=== PATIENT | male | born 1930 | race Caucasian/White ===

== ENCOUNTER 2016-08-12 18:14 | Inpatient (IN) | payer MEDICARE, BC ==
--- NOTE | ~2016-08-12 | HP ---
Unit #: [id number] #: [id number] Patient: STEVEN RESTREPO [id number] [address] [address] [id number] I MR#: [id number] NAME: STEVEN RESTREPO ROOM: 308 Age: 85 Sex: M Admission Date: 08/12/2016 : 1930 Attending Physician: Maria M Bustamante M.D. Referring Physician: Timo Caro Jr., M.D. Primary Care Physician: Timo Caro Jr., M.D. HISTORY AND PHYSICAL CHIEF COMPLAINT Short of breath. HISTORY OF PRESENT ILLNESS The patient is an 85-year-old male with past medical history of multiple medical problems including COPD, chronic respiratory failure, chronic kidney disease, abdominal aortic aneurysm, atrial fibrillation, CHF, ureteral stricture, hypertension, hyperlipidemia, coronary artery disease, who presented to the emergency department for evaluation of the above. The patient states that he was in his usual state of health until today when he developed shaking chills, shortness of breath and nonproductive cough. He was brought to the emergency department for further evaluation. Upon arrival in the emergency department, the patient's temperature was 103, pulse 90, respirations 28, blood pressure 148/71. He is currently on BiPAP. Chest x-ray shows possible infiltrate. Lactic acid is 2.4. Rapid flu screen is negative. He was given Rocephin and azithromycin in the emergency department. He is being admitted to [facility] for evaluation and further treatment. PAST MEDICAL HISTORY 1. Admission to [facility] May 31 through the 2013 for a left lower lobe pneumonia and urinary tract infection. 2. COPD. 3. Chronic respiratory failure, on 3 L of oxygen per nasal cannula. 4. Chronic kidney disease. 5. History of ureteral stricture, status post nephrostomy tube placement, followed by Dr. Berry. The nephrostomy tube was apparently changed two weeks ago. 6. Hypertension. 7. Hyperlipidemia. 8. Coronary artery disease, status post stent placement. 9. Hypertension. 10. Hyperlipidemia. 11. Abdominal aortic aneurysm. PAST SURGICAL HISTORY 1. Cardiac stent placement. 2. Aortic aneurysm repair. 3. Left nephrostomy tube. 4. ORIF left hip fracture. 5. Multiple esophageal dilatations. Unit #: [id number] #: [id number] Patient: STEVEN RESTREPO SOCIAL HISTORY The patient lives with his . There is no tobacco or alcohol use. He walks with a walker. His code status is a DO NOT RESUSCITATE. FAMILY HISTORY Notable for coronary artery disease and hypertension. ALLERGIES Librium, metoclopramide, codeine. MEDICATIONS Home medications include: 1. Aspirin. 2. Atorvastatin. 3. Lasix. 4. Norvasc. 5. Omeprazole. 6. Propranolol. 7. Montelukast. 8. Spiriva. 9. Temazepam. Home medications will need to be reviewed and verified. REVIEW OF SYSTEMS A complete review of systems is negative except as indicated in the HPI. The patient states that he does choke on his food intermittently if he eats too fast. He denies any vomiting or diarrhea. He denies any chest pain. DIAGNOSTIC STUDIES LABORATORY: Arterial blood gas shows pH of 7.42, pCO2 of 38.8, pO2 of 77.9 on BiPAP of 12/6 with an FIO2 of 60%. Rapid flu screen is negative. INR is 1. Troponin is less than 0.05. Complete blood count notable for white blood cell count of 27.5, hemoglobin and hematocrit 11 and 36.1 respectively. MCV is 80.2, RDW 17, BNP is 647, lactic acid is 2.4. Comprehensive metabolic panel notable for glucose of 238. BUN and creatinine 37 and 2.5 respectively. Alkaline phosphatase 137. PHYSICAL EXAMINATION VITAL SIGNS: Temperature is 103, pulse 90, respirations 28, blood pressure 148/71. GENERAL: The patient is a male who is awake and alert, currently on BiPAP. HEENT: The head is atraumatic. Mucous membranes are moist. NECK: Supple. Trachea is midline. CARDIOVASCULAR: Regular rate and rhythm. LUNGS: Demonstrate a few scattered rhonchi. Breathing is not labored. ABDOMEN: Soft, nontender with bowel sounds present in all four quadrants. EXTREMITIES: Trace edema. NEUROLOGIC: The patient is awake and alert. He is oriented x3. He Unit #: [id number] #: [id number] Patient: STEVEN RESTREPO follows commands. PSYCH: Mood and affect are normal. The patient is cooperative. SKIN: Skin of examined areas is warm and dry. ASSESSMENT The patient is an 85-year-old male with: 1. Acute on chronic respiratory failure. 2. Pneumonia: The patient received Rocephin and Zithromax in the emergency department. 3. Sepsis with a lactic acid of 2.4: Pneumonia could certainly be the source. His urinalysis is pending. The patient does have a nephrostomy tube that was changed two weeks ago, per the patient. Urine culture on May 30, 2013, grew 50,000 to 60,000 E. coli and 20,000 to 30,000 Staph aureus that was resistance to ampicillin and Levaquin. A culture from August 04, 2012, grew greater than 100,000 Enterococcus species and Enterobacter cloacae. Cultures have also grown Pseudomonas (May 02, 2012) that was pansensitive. 4. Chronic obstructive pulmonary disease. 5. Acute on chronic kidney disease: The patient's creatinine was 2 on May 31, 2013. It is 2.5 today. 6. History of ureteral stricture, status post nephrostomy tube placement. 7. Atrial fibrillation, not on chronic anticoagulation. 8. Congestive heart failure: The patient had an echocardiogram May 02, 2012, that showed moderate concentric left ventricular hypertrophy with ejection fraction of 50% to 55%, mild tricuspid regurgitation, mild aortic root dilatation. 9. Coronary artery disease. 10. Hypertension. 11. Hyperlipidemia. 12. Abdominal aortic aneurysm. 13. Hyperglycemia. PLAN 1. Admit to ICU. 2. NPO except medications. 3. Consult Dr. Moscoso regarding acute on chronic respiratory failure. He has already seen the patient and written orders. 4. Blood cultures x2. 5. Sputum culture and sensitivity. 6. Sepsis protocol with repeat lactic acid. 7. Cefepime and vancomycin as per Dr. Moscoso's orders. 8. Normal saline at 75 mL/hour. 9. Serial cardiac enzymes. 10. Consult Dr. Schmidt regarding possible urinary tract infection and nephrostomy tube. 11. CT of the abdomen and pelvis without contrast for further evaluation of nephrostomy tube and kidneys as possible source of infection. 12. Strict I's and O's. 13. Consult Dr. Metz regarding acute on chronic kidney disease. 14. Repeat labs in the morning. 15. SCDs for DVT prophylaxis. 16. Hemoglobin A1c. 17. Low dose sliding scale insulin with Accu-Cheks. 18. Regarding code status, the patient is a DO NOT RESUSCITATE. Thirty-six minutes critical care time spent in the care of this patient (6:10 to 6:46 p.m.). Unit #: [id number] #: [id number] Patient: STEVEN RESTREPO Dictated by Maria M Bustamante M.D. AW/df TD: 08/13/2016 06:10 JOB #: [id number] HISTORY AND PHYSICAL X Maria M Bustamante MD X HISTORY AND PHYSICAL
--- NOTE | ~2016-08-12 | CR72 ---
[facility] A Service of [facility] & [facility] RADIOLOGY TEXT RESULTS PATIENT: STEVEN RESTREPO LOCATION: [facility] - : 29 UNIT #: [id number] AGE: [address]: Phillip Bauer MD SEX: M ORDER DR: [id number] [facility] [address] [facility]. [place], [place] [address] [id number] I MR#: [id number] Acc #: [id number] NAME: STEVEN RESTREPO. : 1930 SEX: M STUDY DATE/TIME: 08/14/2016 3:53 UNIT: [address] ROOM: [facility] STUDY DESCRIPTION: CR Chest Single View Portable Attending Physician: Phillip Bauer M.D. Referring Physician: Timo Caro Jr., M.D. Ordering Physician: Phillip Bauer M.D. Primary Care Physician: Timo Caro Jr., M.D. MEDICAL IMAGING REPORT This report is preliminary unless electronic signature is present EXAM AP portable chest 08/14/2016 HISTORY Respiratory failure. Pneumonia. Follow up cardiopulmonary status. TECHNIQUE AP portable chest x-ray. FINDINGS The exam shows persistent dense airspace consolidation in both lower lobes, unchanged since yesterday and well demonstrated on abdomen CT 08/12/2016. Upper lungs remain clear. Probable COPD. Cardiomegaly is stable. Pulmonary vascularity is normal. IMPRESSION Stable portable chest radiograph, unchanged since yesterday. Persistent dense airspace consolidation in both lower lobes. Dictated by... Kiel Teran M.D. THIS IS AN ELECTRONICALLY VERIFIED REPORT Kiel Teran M.D. at 08/15/2016 5:30 AM RGW/liz TD: 08/15/2016 02:47 JOB #: [id number] MEDICAL IMAGING REPORT COPY
--- NOTE | ~2016-08-12 | EKG ---
PATIENT: STEVEN RESTREPO UNIT #: [id number] Ventricular Rate: 77 BPM Atrial Rate: 77 BPM P-R Interval: 164 ms QRS Duration: 108 ms Q-T Interval: 410 ms QTC Calculation(Bezet): 463 ms P [place]: 92 degrees Calculated R [place]: -28 degrees Calculated T [place]: 127 degrees Diagnosis Line: Sinus rhythm with Premature atrial complexes Diagnosis Line: ST and T wave abnormality, consider lateral ischemia Diagnosis Line: Prolonged QT Diagnosis Line: Abnormal ECG Diagnosis Line: When compared with ECG of 14-AUG-2016 06:55, Diagnosis Line: Sinus rhythm has replaced Atrial fibrillation Diagnosis Line: Nonspecific T wave abnormality now evident in Diagnosis Line: Anterior leads Diagnosis Line: Confirmed by GUILHERME CLEARY MD ([id number]) on Diagnosis Line: 08/15/2016 8:04:46 PM INTERPRETING MD: MAKENNA
--- NOTE | ~2016-08-12 | CO ---
Unit #: [id number] #: [id number] Patient: STEVEN RESTREPO [id number] [address] [place], [place] [address] [id number] I MR#: [id number] NAME: STEVEN RESTREPO ROOM: 308 Age: 85 Sex: M Admission Date: 08/12/2016 : 1930 Attending Physician: Phillip Bauer M.D. Primary Care Physician: Timo Caro Jr., M.D. Consultation Date: 08/13/2016 CONSULTATION REPORT HISTORY OF PRESENT ILLNESS This is an 85-year-old white male with history of multiple medical issues including he has had a previous IL with previous stents, details are unavailable. He got a chronic respiratory failure, wears continuous home oxygen; severe COPD. He got chronic urethral stricture that requires a nephrostomy tube. He follows Dr. Berry. He has had known abdominal aortic aneurysm that has enlarged since 2013, it is now 7.7 x 9.5 cm; in 2013, it was 6.6 cm. He got an ejection fraction of 50% to 55% on his last echo, but that was in 2011. He is very sedentary at home and [facility] follows the patient, he has been dealing with increased chest congestion and cough, and increased weakness over two weeks. He had been treating with some steroids and change in his nebulizer treatments. He was brought into the hospital by his family with as mentioned and 2-week history of increased shortness of breath, increased cough, chills and fever. He denies any chest pain, except he has some lower epigastric discomfort, especially when he is coughing. He denies any increased lower extremity edema. No pain in his neck, bilateral jaws, shoulders, arms, or elbow. In the emergency room, the patient's temperature was 103, his heart rate was 90, respirations 28, blood pressure was 148/71. He was started on BiPAP. His ABGs showed pH is 7.42, pCO2 of 38.8, pO2 of 77.9 that was on BiPAP of 12/6 with FiO2 of 60%. The patient's chest x-ray showed bilateral infiltrates. His lactic acid was 2.4. Rapid flu screen was negative. He was started on IV antibiotics after cultures obtained. Nephrology and Urology has been consulted. He does have chronic kidney disease. His BUN was 37 with creatinine 2.5, eGFR is 26.2. The patient's WBCs are 27.5, his hemoglobin is 11.0, hematocrit 36.1, platelets are 191. Today, his hemoglobin is down to 8.8 and his platelets are 121. The patient had a BNP, which was 647. His initial cardiac enzymes; his troponin 0.06. EKG shows normal sinus rhythm. He has frequent premature ventricular complexes and occasional premature ventricular complex. Cardiology was consulted to assist with evaluation and management. PAST MEDICAL HISTORY 1. Coronary artery disease, previous PCI and stents. Reports that he has had four heart attacks and has several stents, may be questionable four stents. Details are unavailable. He had last cath nine years ago at [facility]. 2. History of paroxysmal atrial fibrillation noted here at [facility] and at one time, had been on Coumadin. 3. Hypertension. 4. Hyperlipidemia. 5. Chronic respiratory failure, severe COPD. He wears continuous oxygen Unit #: [id number] #: [id number] Patient: STEVEN RESTREPO at 3 L. 6. History of multiple esophageal dilatations, most recently, a couple of months ago. 7. History of anemia. 8. Chronic kidney disease with history of urethral stricture, status post nephrostomy tube and was changed two weeks ago. 9. History of abdominal aortic aneurysm. Today, his aneurysm is 7.7 x 9.5 cm and well over 10 cm in length; in 2013, it was 6.6 cm. 10. In 2011, 2D echo; LVEF of 50% to 55% with left ventricle severely dilated, moderate left ventricular hypertrophy, mild tricuspid regurgitation and mild aortic root dilatation. 11. Reformed smoker. 12. [facility] follows the patient at home. PAST SURGICAL HISTORY 1. PCI, angioplasty and stents, questionable two, may be as many as four stents. Details are unavailable. 2. Nephrostomy tube, left kidney that is changed two weeks ago. Follows Dr. Berry. 3. Abdominal aortic aneurysm and left lower extremity aneurysm repair, years ago. 4. Left hip replacement. HOME MEDICATIONS Amlodipine 10 mg p.o. daily, aspirin 81 mg p.o. daily, omeprazole 40 mg p.o. daily, simvastatin 20 mg p.o. daily, Spiriva 1 inhalation daily, temazepam 30 mg p.o. at bedtime, propranolol 60 mg p.o. b.i.d., Lasix 20 mg p.o. daily, montelukast 10 mg p.o. daily. ALLERGIES 1. Librium. 2. Reglan. 3. Codeine. SOCIAL HISTORY The patient lives with his spouse. He is very sedentary due to his multiple medical problems. He only walks up to the bathroom and from the couch to the chair with a walker. No alcohol or illicit drug abuse at this time. He quit smoking 40 years ago, but smoked probably for 40 years. FAMILY HISTORY He states that his father at a young age. His mother lived until she was older. No known acute coronary artery disease in his siblings. REVIEW OF SYSTEMS See details in HPI. PHYSICAL EXAMINATION GENERAL: Mr. Restrepo is an 85-year-old white male. He is in no acute respiratory distress. He is awake, alert. Answers some questions appropriately. VITAL SIGNS: Blood pressure is 129/66, heart rate 76, respirations 18, temperature is 99.5, O2 saturations 99% on room air. His earlier T-max was 100.2. NECK: Trachea midline. No thyromegaly or lymphadenopathy. Mild jugular venous distention. HEART: S1, S2. Regular rate and rhythm, irregular at times. LUNGS: Very diminished. Some rales in the bases. Some scattered Unit #: [id number] #: [id number] Patient: STEVEN RESTREPO. ABDOMEN: Obese, soft. Slightly tender with palpating. EXTREMITIES: Pedal pulses are palpable. 1+ pedal edema. DIAGNOSTIC STUDIES LABORATORY RESULTS: ABGs; pH of 7.452, pCO2 of 32.2, pO2 of 113.0, O2 sats 98.6 that is on FiO2 of 58%. Glucose is 138, BUN is 34, creatinine 2.2, eGFR is 30.3, sodium 137, potassium 4.2, chloride 106, CO2 of 23, calcium is 8.6, phosphorus is 2.6, magnesium is 2.0, total protein 6.2, albumin is 2.8, AST 15, ALT 10, alkaline phosphatase is 102. BNP 647. Lactic acid on admission was 2.4; later, it is 1.2. WBCs are 22.4; hemoglobin 8.8, down from 11.0; hematocrit 29.0; and platelets are 121. Influenza A and B are negative. Urinalysis; 3+ leukocyte esterase, 2+ protein, 100 glucose, 0.2 urobilinogen, 2+ blood, 10 to 25 rbc's, 200 to 300 wbc's, and 4+ bacteria. Blood cultures are pending. Initial cardiac enzymes; CK-MB is 1.0, troponin less than 0.05. CK-MB is less than 1.0, troponin less than 0.05. Latest troponin is 0.06. IMAGING STUDIES: Chest x-ray shows low volumes of bibasilar atelectasis. CT of the abdomen and pelvis without contrast shows extensive bibasilar opacities, most likely represents chronic pneumonia, superimposed on diffuse lung disease and progressive enlargement of a large infrarenal abdominal aortic aneurysm, measuring 7.7 x 9.5 cm in dimensions as well as 10.0 cm in length, compared to 2014 scan that measures 6.6 cm; marked atrophy of the left kidney and a right inguinal hernia without any incarceration or obstruction. CARDIOVASCULAR STUDIES: EKG shows normal sinus rhythm with frequent premature atrial contractions, ventricular rate 89 beats per minute, some nonspecific ST-T wave abnormalities in the lateral leads. IMPRESSION 1. Acute on chronic respiratory failure. 2. Pneumonia. 3. Exacerbation of chronic obstructive pulmonary disease. 4. Sepsis. 5. Acute diastolic congestive heart failure, left ventricular ejection fraction of 50% to 55% that was on echo in 2011 and elevated BNP of 647. 6. History of coronary artery disease, previous percutaneous coronary intervention and stents years ago. 7. Acute on chronic kidney disease. 8. Left nephrostomy tube. 9. Large abdominal aortic aneurysm. 10. Anemia. 11. History of hypertension and hyperlipidemia. 12. History of paroxysmal atrial fibrillation. 13. History of esophageal dilatations. PLAN 1. Cardiology consult to assist with evaluation and management to evaluate for fluid overload. On exam, the patient does appear to be in some congestive heart failure. We will give a dose of IV Bumex and monitor response. We will stop his IV fluids for now. 2. Obtain a 2D echo to evaluate LV function and valves. 3. After examination and interview, Dr. Fitzpatrick recommends the patient be Unit #: [id number] #: [id number] Patient: STEVEN RESTREPO on a low-dose heparin drip for anticoagulation, but we will check with Vascular Surgery first. They have been consulted to evaluate the abdominal aortic aneurysm. 4. The patient has a history of previous stents and he has occasional discomfort in his lower chest wall, however, it may be more pleuritic in nature, usually when he is coughing. 5. Continue to monitor cardiac enzymes and EKG. 6. Obtain fasting lipid profile and TSH and evaluate. 7. Obtain records from [facility]. 8. The patient's spouse wishes conservative medical management. Hospice has been consulted per their request. 9. The patient is on IV antibiotics. Blood and urine cultures are pending. Further recommendations pending per Dr. Fitzpatrick. Thank you very much for allowing us to assist in his care. Dictated by... Mariaelena Oconnell A.P.R.N. for Jed Vásquez/sidney TD: 08/14/2016 03:56 JOB #: [id number] CC: [facility] CONSULTATION REPORT X Mariaelena Oconnell APRN CONSULTATION REPORT
--- NOTE | ~2016-08-12 | DS ---
Unit #: [id number] #: [id number] Patient: STEVEN RESTREPO [id number] [facility]. [place], [place] [address] [id number] I MR#: [id number] NAME: STEVEN RESTREPO. ROOM: 308 Age: 85 Sex: M Admission Date: 08/12/2016 : 1930 Discharge Date: 08/17/2016 Attending Physician: Phillip Bauer M.D. Referring Physician: Timo Caro Jr., M.D. Primary Care Physician: Timo Caro Jr., M.D. DISCHARGE SUMMARY Plan for discharge home with hospice. REASON FOR ADMISSION Please see H and P for complete details. Essentially, the patient was admitted for shortness of breath. HISTORY OF PRESENT ILLNESS He is a very pleasant 85-year-old male with history of multiple medical problems including COPD on chronic home O2; chronic kidney disease; abdominal aortic aneurysm; atrial fibrillation; prior history of heart failure; recent ureteral stricture, status post stent placement as an outpatient; hypertension; hyperlipidemia; coronary artery disease, who presented with the above. It was noted he did meet sepsis criteria on admission with chest x-ray showing possible infiltrate. Lactic acid level was elevated. His temperature was elevated at 103. He was subsequently placed on telemetry floor. Appropriate consultations were placed to Pulmonary Services including Dr. [facility], who continue to follow the patient through hospital course. Blood cultures eventually were positive for 2/2 Staphylococcus coag-negative. In regard to pneumonia as well as positive blood cultures, initially consultation had been placed to Infectious Disease Services. While he was here, he was placed on IV vancomycin as well as cefepime. Final urine culture did reveal Enterococcus as well in consideration of his recent stent placement. We placed consultation to Dr. Ramos of Urology Services. Stent exchange was performed in this hospital admission and ID Services continued to follow for the same. In regard to his history of systolic heart failure, 2D echocardiogram in this hospital admission revealed ejection fraction 30% to 35%, and [facility] followed. He began having sinus pauses noted on heart monitor greatest at approximately 2.6 seconds. His beta blockers and calcium channel blockers were discontinued. A discussion was initiated for possible pacemaker placement; however, the patient does state that he did not wish to have Unit #: [id number] #: [id number] Patient: STEVEN RESTREPO any further invasive procedures. It was noted on heart monitor, he does have atrial fibrillation with slow ventricular response. In regard to his pneumonia as well as acute on chronic respiratory failure, Dr. Dyer, Pulmonary Services followed as well. He had undergone a CT of abdomen and pelvis in consideration of his prior history of abdominal aortic aneurysm on the aforementioned CT abdomen and pelvis that did reveal an increase in size of his abdominal aortic aneurysm and in consideration, we placed consultation to Vascular Services, who stated that he was not an operative candidate secondary to associated comorbid conditions. His abdominal aortic aneurysm was greater than 10 cm in length and approximately 7.7 times 9.5 cm in transverse dimensions. In consideration of associated comorbid conditions, bacteremia, sepsis, Enterococcus UTI, atrial fibrillation, sinus pauses, abdominal aortic aneurysm as well as chronic respiratory failure, chronic deconditioning, discussion was initiated with the patient as well as his and family and they were apprised of his overall poor prognosis. He stated that he wished to be a DNR and he also wished to go home with the care of hospice. Therefore, hospice services were consulted through the day today. Once appropriate home situation is established including hospice services, the patient will be transitioned home with hospice at time of discharge. At the time of discharge, his medications have been reviewed and some will be continued. Please see below. His cefepime will be determined by ID services at time of discharge to be continued. The patient is well aware of his terminal prognosis and is quite adamant that he wishes to go home and pass away in a state of peace. Please note, the patient did have elevated creatinine consistent with renal failure and Dr. Metz and associates were consulted as well. Unfortunately, his kidney function did not resume as deemed appropriate. He did have fluid and/or volume issues through his hospital course. CURRENT CLINICAL DIAGNOSES 1. Acute on chronic respiratory failure. 2. Sepsis on admission. 3. Sinus pauses/tachybrady syndrome. 4. Atrial fibrillation with slow ventricular response. 5. Coronary artery disease. 6. Systolic heart failure. 7. 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 8. Methicillin-resistant Staphylococcus aureus sputum. 9. Enterococcus urinary tract infection. 10. Staphylococcus bacteremia /. 11. Abdominal aortic aneurysm, 7.7 cm. 12. End-stage chronic obstructive pulmonary disease. 13. Bilateral lower lobe dense consolidations seen on admission. 14. Chronic deconditioning. 15. Chronic immobility syndrome. Unit #: [id number] #: [id number] Patient: STEVEN RESTREPO PROGNOSIS Poor. PLAN Home with hospice. DISCHARGE MEDICATIONS Lasix 40 mg p.o. daily, insulin high-dose sliding scale with Accu-Cheks q.a.c. and q.h.s., Protonix 40 mg p.o. daily, Restoril 30 mg p.o. q.h.s., Spiriva 1 inhalation daily, Tylenol 650 mg p.o. q.6 p.r.n., Xopenex q.6 scheduled with q.4 p.r.n., cefepime medications as per the direction of ID Services. Time spent in the coordination of this discharge, chart review, management, discussion with family, hospice, as well as the patient in detail is greater than 55 minutes. Dictated by... Phillip Bauer M.D. ALLEN/sidney TD: 08/18/2016 02:02 JOB #: [id number] DISCHARGE SUMMARY Page 1 of 1 X Phillip Bauer MD X DISCHARGE SUMMARY
--- NOTE | ~2016-08-12 | CT4 ---
[facility] A Service of [facility] & [facility] RADIOLOGY TEXT RESULTS PATIENT: STEVEN RESTREPO LOCATION: [facility] 308- : 29 UNIT #: [id number] AGE: [address]: Phillip Bauer MD SEX: M ORDER DR: [id number] [facility] [address] [facility]. [place], [place] [address] [id number] I MR#: [id number] Acc #: [id number] NAME: STEVEN RESTREPO. : 1930 SEX: M STUDY DATE/TIME: 08/12/2016 20:06 UNIT: A U ROOM: [facility] STUDY DESCRIPTION: CT Abd and Pelv Wo Cont Attending Physician: Phillip Bauer M.D. Referring Physician: Timo Caro Jr., M.D. Ordering Physician: Maria M Bustamante M.D. Primary Care Physician: Timo Caro Jr., M.D. MEDICAL IMAGING REPORT This report is preliminary unless electronic signature is present EXAM CT abdomen and pelvis without contrast HISTORY 85-year-old male reported rectal bleeding this morning, frequent UTIs. Stent placed last week. History of tumor blocking ureter and left kidney. COMPARISON CT abdomen and pelvis, 05/31/[address] exam was performed with one or more of the following radiation dose reduction techniques: automatic exposure control, adjustment of mA and/or kV according to patient size, and iterative reconstruction. FINDINGS Axial images were performed through the abdomen and pelvis without contrast. Multiplanar reconstructed images reviewed at a workstation. ABDOMEN: The examination demonstrates extensive parenchymal opacities in both lung bases with bronchiectasis and cystic change compatible with probable acute infectious pneumonia superimposed on chronic lung disease. No sizeable effusions. The liver, spleen, gallbladder unremarkable. Pancreas demonstrates generalized fatty atrophy. Adrenal glands unremarkable. The right kidney unremarkable. The left kidney demonstrates extensive cortical atrophy. There is a nephrostomy tube in place on the left but this extends towards the lateral portion of the left kidney and may be of limited function. Cyst seen in the upper pole left kidney measures up to 3.5 cm. Stomach, small bowel, colon unremarkable except for sigmoid diverticular change. There is a large infrarenal abdominal aortic aneurysm measuring over 10.0 cm in length and approximately 7.7 x 9.5 cm in greatest STS. [facility] A Service of [facility] & [facility] RADIOLOGY TEXT RESULTS PATIENT: STEVEN RESTREPO LOCATION: [facility] 308-01 : 29 UNIT #: [id number] AGE: [address]: Phillip Bauer MD SEX: M ORDER DR: transverse dimensions. This has shown interval increase in size when compared to the patient's CT scan of 2014. Aneurysmal dilatation also extends into the proximal iliacs. PELVIS: A Roberts catheter is seen within a decompressed bladder. Generalized osteopenia. Fixation instrumentation seen in the proximal left femur. There is a right inguinal hernia which contains a small loop of bowel which appears to represent small bowel but no evidence of incarceration. Moderate amount of stool noted in the rectal vault. IMPRESSION 1. Extensive bibasilar parenchymal opacities most likely represents chronic pneumonia superimposed on background diffuse lung disease. 2. Progressive enlargement of a large infrarenal abdominal aortic aneurysm now measuring 7.7 x 9.5 cm transverse dimensions and well over 10.0 cm in length. This has shown progression from 2014 where it measured about 6.6 cm in greatest dimension. 3. Marked atrophy of the left kidney with a nephrostomy catheter in place but this may be of limited value given its positioning and the limited amount of remaining left renal tissue. Right kidney unremarkable. 4. Right inguinal hernia containing a small loop of small bowel but no incarceration or obstruction. Dictated by... Shari Shane M.D. THIS IS AN ELECTRONICALLY VERIFIED REPORT Shari Shane M.D. at 08/13/2016 5:11 PM KAVIN/danielle TD: 08/13/2016 08:58 JOB #: [id number] MEDICAL IMAGING REPORT COPY
--- NOTE | ~2016-08-12 | CO ---
Unit #: [id number] #: [id number] Patient: STEVEN RESTREPO [id number] [address] [place], [place] [address] [id number] I MR#: [id number] NAME: STEVEN RESTREPO. ROOM: 308 Age: 85 Sex: M Admission Date: 08/12/2016 : 1930 Attending Physician: Phillip Bauer M.D. Primary Care Physician: Timo Caro Jr., M.D. Consultation Date: 08/15/2016 CONSULTATION REPORT REASON FOR CONSULTATION Positive blood cultures and urinary tract infection. HISTORY OF PRESENT ILLNESS This is an 85-year-old male known to our service but not seen for four years. The patient has multiple medical problems and, per the family who is at the bedside who provide most of the history, has been chronically ill for several years. The patient began feeling worse than his baseline about Tuesday evening/ morning. The patient was found to have some chills, some anorexia, some occasional cough and was thought to have maybe a fever or infection so he was brought to the emergency room. The patient was found to have a fever of 103 degrees Fahrenheit with associated leukocytosis. Workup also revealed an enlarging abdominal aortic aneurysm, bilateral lower lobe pneumonia, enterococcal urinary tract infection and two of two positive blood cultures with coagulase negative Staphylococcus. The patient has been placed on vancomycin and cefepime but ID was asked to evaluate due to positive blood cultures. The patient is noted to have a chronic left ureteral stricture managed with a chronic left percutaneous nephrostomy tube. This has changed monthly at the urologist's office for the past seven years. The patient reports that this was last changed approximately three weeks ago. The patient also has a chronic indwelling Roberts catheter which he changes monthly and this is to be change in the next one week. The patient reports that he continues to have some cough. He does have some discomfort in the abdomen but no diarrhea. He has more constipation. He also has some metal and hardware in his left hip but reports there is no change in pain in his hip and he gets around with a walker. The patient denies feeling any chest pain. He denies any headaches or upper respiratory signs and symptoms. PAST MEDICAL HISTORY Includes: 1. COPD. 2. Coronary artery disease. 3. Atrial fibrillation. 4. CHF. 5. Peripheral vascular disease. 6. Chronic kidney disease. 7. Hyperlipidemia. 8. Esophageal stricture. 9. Cardiac stenting. 10. Aortic aneurysm repair and stenting, now with enlarging abdominal aortic aneurysm. 11. Left nephrostomy tube. 12. Left hip fracture, status post surgery with hardware replacement and Unit #: [id number] #: [id number] Patient: STEVEN RESTREPO esophageal dilatation. ALLERGIES Librium, Reglan and codeine. MEDICATIONS Vancomycin and cefepime. For other medications, please refer to patient's MAR. SOCIAL HISTORY The patient lives with family. He denies any alcohol, tobacco or other drug use. REVIEW OF SYSTEMS Negative except for as previously mentioned above. PHYSICAL EXAMINATION VITAL SIGNS: Temperature 98.9 with a T-max on admission of 103. Pulse is 81, blood pressure 130/73, and respiratory rate is 18 to 20. GENERAL: This is a frail male that is resting in the bed. He has continuous high flow oxygen via his nares and he is alert and oriented. HEENT/NECK: His pupils are equal. His neck is supple. CARDIOVASCULAR: S1, S2 with regular rate and rhythm. PULMONARY: Scattered rhonchi and coarse sounds noted throughout. ABDOMEN: Positive bowel sounds. Soft. There is some mild tenderness near the left flank area. There is a left nephrostomy in place that appears to be draining into a leg bag that had some appearance of discoloration. He has a chronic indwelling Roberts catheter that has clear yellow urine. He has no significant edema. It looks like he has some chronic healing wounds but nothing deep. DIAGNOSTIC STUDIES LABORATORY: BUN 51, creatinine 3.3 which is continuously increasing. Sodium 135, potassium 4.2, chloride 101, CO2 22, bilirubin 0.8, AST is 21, ALT is 11. Lactic acid was 1.2 on admission. White blood cell count is 8.6 which is improved from 27.5 on admission. Hemoglobin 9, hematocrit 29, platelets 117 which has been trending down since admission. Fungal serology is currently pending. Influenzae screen is negative. Urinalysis, which I believe was from the Roberts catheter and not the nephrostomy tube, shows white blood cell count of 200 to 300 with negative nitrites, 2+ blood, 3+ bacteria. MICROBIOLOGY DATA: Urine culture with greater than 100,000 colonies of enterococcus. Blood cultures two of two coag negative Staph approximately 15 minutes apart. Further ID is currently pending. CARDIOVASCULAR: Echocardiogram shows an EF of 30% to 35%. Mild to moderate MR, mild to moderate TR. Small pericardial effusion. IMAGING: CT scan of the abdomen and pelvis shows extensive pneumonia with Unit #: [id number] #: [id number] Patient: STEVEN RESTREPO diffuse lung disease, progressive enlargement of an infrarenal abdominal aortic aneurysm, atrophy of the left kidney and right inguinal hernia. Chest x-ray shows persistent airspace disease in bilateral lower lobes. IMPRESSION This is an 85-year-old male with complex medical history including chronic ureteral stricture on the left side with chronic indwelling nephrostomy tube changed monthly as well as an increasing abdominal aortic aneurysm, coronary artery disease and kidney disease. The patient now is admitted with a suspicion of sepsis. He was found to have fever, leukocytosis as well as two of two positive blood cultures for coagulase negative Staphylococcus. At this time, unclear if the species is the same on the coag negative Staph and sensitivities are currently pending. Echocardiogram does not show any vegetations. At this time, if they are the same species, will consider this to be a significant finding. Otherwise, will consider it a contamination. The patient does have hardware in his left hip; however, he does not have any pain and is still able to ambulate with a walker. At this time, will continue to follow culture results and repeat blood cultures x2 30 minutes apart. The patient does not have any indwelling IV sites, only peripheral IV sites on both extremities. The patient also has bilateral pneumonia and at this time will like to continue vancomycin and cefepime as, overall, he appears to be clinically improving per his family that is at the bedside. His fever and leukocytosis have also improved. If patient continues to worsen or decline, will change cefepime to Zosyn. Will continue to follow up on sputum culture. The patient's next infectious disease issue appears to be an enterococcal urinary tract infection. At this time, I am unclear if this is related to patient's indwelling Roberts catheter or if it is related to his indwelling nephrostomy tube. CT scan was noted and is also following. As his left port graham kidney is atrophying and is very small, unclear if patient still needs his nephrostomy tube but will continue to follow with recommendations. At this time, sensitivities of enterococcus are pending but appears to be responding with vancomycin so will continue the same until further information is known. This may need to be either exchanged or removed but will continue to follow up culture results. Patient's fever and leukocytosis again have been improving. Will repeat CBC in the morning and continue to follow temperature. His increasing abdominal aortic aneurysm is being followed by the vascular surgery team. However, it is going to be managed medically due to patient's age and multiple comorbid conditions and he is not a candidate for any type of surgery at this time. Due to patient's multiple comorbidities and medical issues, hospice has been asked to see this patient and is going to meet with the patient's family and later on today. Will continue aggressive antibiotic coverage until goals of care have been established. Thank you for allowing us to participate in the care of this patient. Further recommendations to follow pending patient's clinical course. Dictated by... Caro Madrid A.P.R.N. for José Marie M.D. Unit #: [id number] #: [id number] Patient: STEVEN RESTREPO CAMELIA/anna TD: 08/15/2016 12:10 JOB #: [id number] CONSULTATION REPORT X X CONSULTATION REPORT
--- NOTE | ~2016-08-12 | HP ---
Unit #: [id number] #: [id number] Patient: STEVEN RESTREPO [id number] [address] [address] [id number] I MR#: [id number] NAME: STEVEN RESTREPO ROOM: 308 Age: 85 Sex: M Admission Date: 08/12/2016 : 1930 Attending Physician: Maria M Bustamante M.D. Referring Physician: Timo Caro Jr., M.D. Primary Care Physician: Timo Caro Jr., M.D. HISTORY AND PHYSICAL ADDENDUM Additional information under physical exam - I think I failed to mention the patient has a nephrostomy tube coming from his left flank. Dictated by Jed Cunningham/df TD: 08/13/2016 06:28 JOB #: [id number] HISTORY AND PHYSICAL X Maria M Bustamante MD X HISTORY AND PHYSICAL
--- NOTE | ~2016-08-12 | EKG ---
PATIENT: STEVEN RESTREPO UNIT #: [id number] Ventricular Rate: 93 BPM Atrial Rate: 300 BPM QRS Duration: 114 ms Q-T Interval: 400 ms QTC Calculation(Bezet): 497 ms Calculated R Isaban: -38 degrees Calculated T Isaban: 107 degrees Diagnosis Line: Atrial fibrillation Diagnosis Line: Left axis deviation Diagnosis Line: Nonspecific ST and T wave abnormality , probably Diagnosis Line: digitalis effect Diagnosis Line: Prolonged QT Diagnosis Line: Abnormal ECG Diagnosis Line: When compared with ECG of 12-AUG-2016 16:54, Diagnosis Line: Atrial fibrillation has replaced Sinus rhythm Diagnosis Line: Confirmed by EMILY SNELL MD ([id number]) on 08/14/2016 Diagnosis Line: 8:01:12 AM INTERPRETING MD: CHANNING FOX
--- NOTE | ~2016-08-12 | CR72 ---
[facility] A Service of [facility] RADIOLOGY TEXT RESULTS PATIENT: STEVEN RESTREPO LOCATION: [facility] 308- : 29 UNIT #: [id number] AGE: [address]: Phillip Bauer MD SEX: M ORDER DR: [id number] [facility] [address] [facility]. [place], [place] [address] [id number] MR#: [id number] Acc #: [id number] NAME: STEVEN RESTREPO. : 1930 SEX: M STUDY DATE/TIME: 08/13/2016 5:35 UNIT: [address] ROOM: [facility] STUDY DESCRIPTION: CR Chest Single View Portable Attending Physician: Phillip Bauer M.D. Referring Physician: Timo Caro Jr., M.D. Ordering Physician: Maria M Bustamante M.D. Primary Care Physician: Timo Caro Jr., M.D. MEDICAL IMAGING REPORT This report is preliminary unless electronic signature is present EXAM AP portable chest DATE 08/13/2016 at 0535 HISTORY 85-year-old male with shortness of breath, respiratory failure, and chronic pneumonia. Symptoms again 08/12/2016. COMPARISON AP portable chest 08/12/[address] abdomen and pelvis lung windows 08/12/2016. FINDINGS Dense bilateral lower lobe consolidations are present and are not thought to be significantly changed. Stable cardiomegaly. Probable trace bilateral pleural effusions. No visible pneumothorax. Background emphysematous changes are thought to be present. IMPRESSION 1. No significant change in the dense bibasilar consolidations and emphysematous changes. 2. Stable cardiomegaly. Dictated by... Maggie Holguin M.D. THIS IS AN ELECTRONICALLY VERIFIED REPORT Maggie Holguin M.D. at 08/17/2016 8:38 AM LLH/tmw [facility] A Service of [facility] RADIOLOGY TEXT RESULTS PATIENT: STEVEN RESTREPO LOCATION: [facility] 308-01 : 29 UNIT #: [id number] AGE: [address]: Phillip Bauer MD SEX: M ORDER DR: TD: 08/13/2016 11:24 JOB #: [id number] MEDICAL IMAGING REPORT Page 1 of 1 COPY
--- NOTE | ~2016-08-12 | CO ---
Unit #: [id number] #: [id number] Patient: STEVEN RESTREPO [id number] [address] [place], [place] [address] [id number] MR#: [id number] NAME: STEVEN RESTREPO. ROOM: 308 Age: 85 Sex: M Admission Date: 08/12/2016 : 1930 Attending Physician: Phillip Bauer M.D. Primary Care Physician: Timo Caro Jr., M.D. Consultation Date: 08/13/2016 CONSULTATION REPORT REASON FOR CONSULTATION Abdominal aortic aneurysm. HISTORY OF PRESENT ILLNESS This is an 85-year-old male, being seen at [facility]. He is currently admitted with shortness of air. This is a patient we had seen previously in 2012. At that time, he had a 6.2 x 5.6 cm abdominal aortic aneurysm. At that time, he had declined repair related to the risks. He also declined further imaging related to his renal function. He had elected medical management only. He now has had new CT imaging while admitted to this hospitalization and it has been determined that his aneurysm has increased in size to 9.5 x 7.7 cm. Mr. Restrepo reports that many years ago, he had an abdominal aortic aneurysm repair. PAST MEDICAL HISTORY Includes, 1. Abdominal aortic aneurysm. 2. Respiratory failure. 3. COPD. 4. Chronic kidney disease. 5. Urethral stricture. 6. Esophageal stenosis. 7. Hyperlipidemia. 8. Coronary artery disease. 9. Hypertension. 10. Pneumonia. ALLERGIES Include, 1. Librium. 2. Reglan. 3. Codeine. 4. Albuterol. MEDICATIONS Med list includes; Tylenol as needed, aspirin, atorvastatin, Lasix, omeprazole, pantoprazole, Norvasc, montelukast, Spiriva, and temazepam. SOCIAL HISTORY The patient lives at home with his of 12 years. Previously, he was for over 50 years to his first , who has since . The patient has a history of smoking many years ago, but has quit for the past 40 years. He denies alcohol or drug use. Unit #: [id number] #: [id number] Patient: STEVEN RESTREPO FAMILY HISTORY Mother had heart disease. Father had cancer. REVIEW OF SYSTEMS CONSTITUTIONAL: The patient presented with complaints of chills. EYES: Negative. EAR, NOSE, MOUTH, AND THROAT: Negative. RESPIRATORY: Shortness of air on exertion, oxygen requirement. CARDIOVASCULAR: Negative. GASTROINTESTINAL: Trouble swallowing, status post multiple esophageal strictures. GENITOURINARY: History of difficulty with voiding. HEME/LYMPH: Negative. ENDOCRINE: Negative. MUSCULOSKELETAL: Negative. INTEGUMENT: Negative. NEUROLOGIC: Negative. PSYCHIATRIC: Negative. PHYSICAL EXAMINATION VITAL SIGNS: Temperature is 98.6, heart rate 76, respirations 19, and blood pressure 124/91. GENERAL APPEARANCE: This is a well-developed and well-nourished male, in no acute distress. Answers questions appropriately. The patient has generalized tremor. HEENT: Pupils are equal, round, and reactive to light. NECK: Supple. No carotid bruits noted. CARDIAC: Regular rate and rhythm. No murmurs noted. LUNGS: The patient is on 40% Oxymizer. Diminished bilateral bases. ABDOMEN: Positive bowel sounds. Abdomen is distended. Palpable mass able to be felt on exam. Of note, deep palpation was not performed related to aneurysmal dilation underneath. Well-healed midline abdominal scar. Dimple in the abdomen, where appears to had urostomy tube at some point. MUSCULOSKELETAL: Moves all extremities with full range of motion. Upper extremities, no deformities noted, no edema. Lower extremities, no deformities noted, no edema. VASCULAR: Palpable radial, femoral, dorsalis pedis, posterior tibial pulses bilaterally. INTEGUMENTARY: Skin is warm and dry. No obvious sores, lesions, or nonhealing wounds. NEUROLOGIC: Cranial nerves II through XII grossly intact. Patient with normal strength and sensation bilaterally. PSYCHIATRIC: Oriented to person, place, and time. DIAGNOSTIC STUDIES IMAGING STUDIES: CT imaging of the abdomen demonstrates 7.7 x 9.5 cm abdominal aortic aneurysm that measures 10.2 cm in length. LABORATORY RESULTS: Sodium 137, potassium 4.2, chloride 106, CO2 of 23, BUN 34, creatinine 2.2, glucose 138. Hemoglobin 8.8, hematocrit 29, WBCs 22.4, platelets 121. ASSESSMENT AND PLAN 1. Abdominal aortic aneurysm. 2. Chronic kidney disease. Unit #: [id number] #: [id number] Patient: EHRINGER,STEVEN J IMPRESSION The patient is not a candidate for stent graft repair. In order to repair his aneurysm he would require an open repair that should be a high risk related to the patient's multiple comorbidities. I discussed this with the patient and he would like to continue with medical management in the past. I discussed that if his abdominal aortic aneurysm were to rupture it would be a fatal event. The patient verbalized understanding of these risks and wishes to continue with medical management. All questions were answered to his satisfaction. Thank you for allowing us to participate in the care of this patient. Dictated by... Billy Batista APRN for Jed Chowdhury/sidney TD: 08/14/2016 02:44 JOB #: [id number] CONSULTATION REPORT X X CONSULTATION REPORT
--- NOTE | ~2016-08-12 | CO ---
Unit #: [id number] #: [id number] Patient: STEVEN RESTREPO [id number] [address] [place], [place] [address] [id number] MR#: [id number] NAME: STEVEN RESTREPO ROOM: 308 Age: 85 Sex: M Admission Date: 08/12/2016 : 1930 Attending Physician: Phillip Bauer M.D. Primary Care Physician: Timo Caro Jr., M.D. Consultation Date: 08/12/2016 CONSULTATION REPORT REASON FOR CONSULTATION We were asked to see him by Dr. Teixeira for respiratory failure. HISTORY OF PRESENT ILLNESS Mr. Restrepo is an 85-year-old male with a history of chronic respiratory failure who uses 3 L nasal cannula. He really does not get out much and instead is typically seen by [facility] and other than that the only person he sees on a regular basis is Dr. Gurdeep Berry. He was noted to have chills starting today. Up until today and apparently was doing fairly well. We are asked to see him for respiratory failure. He has had a cough, but the cough has been mostly nonproductive. It is notable that his who is his warper tender has been sick also and she was probably sick before he was. He did smoke, but he quit 50 years ago. PAST MEDICAL HISTORY Otherwise significant for COPD despite the fact he really had not smoked all that much, history of a nephrostomy, which is changed periodically. They said they saw Dr. Berry maybe 2 weeks ago and everything seemed to be in order. Coronary artery disease, left ureteral stricture and urethral stricture, abdominal aortic aneurysm, chronic kidney disease, hypertension, hyperlipidemia. PAST SURGICAL HISTORY Include coronary artery bypass grafting, several urologic procedures including left nephrostomy tube, cardiac stent, abdominal aortic aneurysm repair, left hip ORIF, esophageal dilatations. MEDICATIONS On admission included amlodipine, aspirin, omeprazole, simvastatin, Spiriva should be one capsule inhaled daily, temazepam, propranolol, Lasix, montelukast, aspirin, atorvastatin. ALLERGIES Chlordiazepoxide, metoclopramide, codeine. SOCIAL HISTORY He does smoke, but he quit approximately 50 years ago. FAMILY HISTORY Significant for no definite lung disease. There is a family history of heart disease in his father. REVIEW OF SYSTEMS Unit #: [id number] #: [id number] Patient: STEVEN RESTREPO He had nausea. No vomiting. He does have to catheterize himself. No leg swelling. Appetite has been down today. No diarrhea. All other systems are negative except as mentioned. PHYSICAL EXAMINATION GENERAL: He presents as an older male, in no acute distress. He is presently on BiPAP at 12/6 and 60%, saturation 97%, temperature was 103, pulse 90, respirations 28, blood pressure 148/71. NECK: Without adenopathy. Neck is a little thick. LUNGS: Reveals his breathing is not labored. He is a little tachypneic. Lungs are otherwise clear. HEART: Regular. ABDOMEN: Soft, maybe a tiny bit distended, not tender. Bowel sounds present. EXTREMITIES: Maybe trace of edema. NEUROLOGIC: He is awake and alert. DIAGNOSTIC STUDIES IMAGING STUDIES: His chest x-ray to my exam revealed in my opinion, increased markings of right lower lobe, maybe right middle lobe, maybe even right upper lobe, which is subtle and patchy and maybe a little bit left lower lobe, increased interstitial markings, which may be in my opinion consistent with atypical pneumonia. I could not rule out pulmonary edema. LABORATORY RESULTS: Blood gas was done on 60% on BiPAP, pH 7.42, pCO2 of 38.8, pO2 of 77.9, that is BiPAP 12/6 and 60%. Serum chemistry significant for BUN of 37, creatinine 2.5, glucose was 238, bicarb was 25. He had a lactic acid of 2.4, and BNP of 647. White blood cell count 27.5 thousand, H and H of 11 and 36, 191,000 platelets. IMPRESSION 1. Acute on chronic hypoxemic respiratory failure. 2. Pneumonia, which I think is subtle. 3. Urinary tract infection. 4. Sepsis, now etiology is uncertain, but it may well be his lungs and his kidneys. 5. Chronic kidney disease and may be acute kidney injury on chronic kidney disease. The last creatinine was 2, which isn't that much better than he is now, but is a little bit better. 6. History of chronic obstructive pulmonary disease, but really is not all that bronchospastic. PLAN I looked at his past cultures especially his urinary cultures and he has grown a variety of bacteria from Enterobacter to Pseudomonas, most recently E coli and Staph, but that was in 2013. I would consider both vancomycin x1 and cefepime to cover gram negatives, this covered Pseudomonas and vancomycin. We will cover the enterococcus until we can get adequate cultures back. He will need urine cultures and I think blood cultures were sent, but I am not sure urine cultures were sent. I would like a swab for viral DNA, which will give us the flu and despite the fact that he is influenza A and B negative on serology, it is certainly possible that is a false negative. Thank you very much for allowing me to participate in the care of this patient. Unit #: [id number] #: [id number] Patient: LAUROSTEVEN Dictated by... Jed Mixon/sidney TD: 08/13/2016 07:47 JOB #: [id number] CONSULTATION REPORT X Hector Moscoso MD X CONSULTATION REPORT
--- NOTE | ~2016-08-12 | CR72 ---
[facility] A Service of [facility] RADIOLOGY TEXT RESULTS PATIENT: STEVEN RESTREPO LOCATION: [facility] 308- : 29 UNIT #: [id number] AGE: [address]: Phillip Bauer MD SEX: M ORDER DR: [id number] [facility] [address] [place], [place] [address] [id number] I MR#: [id number] Acc #: [id number] NAME: STEVEN RESTREPO. : 1930 SEX: M STUDY DATE/TIME: 08/12/2016 17:12 UNIT: [address] ROOM: [facility] STUDY DESCRIPTION: CR Chest Single View Portable Attending Physician: Maria M Bustamante M.D. Referring Physician: Timo Caro Jr., M.D. Ordering Physician: Jessica Teixeira M.D. Primary Care Physician: Timo Caor Jr., M.D. MEDICAL IMAGING REPORT This report is preliminary unless electronic signature is present EXAM Portable chest 08/12 COMPARISON 06/01/2013 HISTORY Shortness of breath beginning at 8 a.m. this morning. History of prior RI and heart failure. FINDINGS AP portable view is obtained. There is cardiac enlargement. Exam is obtained at low volumes. There is mild basilar atelectasis. The upper lobes are clear. Vascular markings are normal. CONCLUSION Low volumes with bibasilar atelectasis. Cardiomegaly. Dictated by... Cheo Bravo M.D. THIS IS AN ELECTRONICALLY VERIFIED REPORT Cheo Bravo M.D. at 08/16/2016 5:10 PM Sofy TD: 08/13/2016 07:33 JOB #: [id number] MEDICAL IMAGING REPORT COPY
--- NOTE | ~2016-08-12 | CO ---
Unit #: [id number] #: [id number] Patient: LUIS RESTREPO [id number] [address] [place], [place] [address] [id number] MR#: [id number] NAME: LUIS RESTREPO. ROOM: 308 Age: 85 Sex: M Admission Date: 08/12/2016 : 1930 Attending Physician: Phillip Bauer M.D. Primary Care Physician: Timo Caro Jr., M.D. CONSULTATION REPORT REASON FOR CONSULTATION Acute on chronic kidney disease. HISTORY OF PRESENT ILLNESS Mr. Luis Restrepo had developed a cough with bloody sputum, fever and chills and came in to the ER yesterday. 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 CAT scan that was performed in the emergency room yesterday showed extensive bilateral pneumonia and left renal atrophy with a nephrostomy tube in place. Also noted on the CT scan was a right inguinal hernia and an abdominal aortic aneurysm that is infrarenal measuring 7.7 cm x 9.5 cm in greatest dimensions. This has increased in size compared to CAT scan of 2013. The patient tells me he has no primary care physician other than [facility] and is not seeing a remedial teacher outpatient. He does see Dr. Berry, and Dr. Berry changed the Roberts out 3 weeks ago and changed the left nephrostomy tube out 2 weeks ago. He was hospitalized back in May for UTI. PAST MEDICAL HISTORY 1. 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 Is not following with nephrology currently. He last saw Dr. Metz back in 2011 in the hospital only. 2. Left nephrostomy tube. 3. Indwelling Roberts. 4. Coronary artery disease. History of DE and stent. 5. Large aneurysm, infrarenal, measuring 7.7 cm x 9.5 cm in greatest dimension. 6. COPD. 7. Immobility. 8. Left rotator cuff tear. HOME MEDICINES Include amlodipine, aspirin, omeprazole, simvastatin, Spiriva, temazepam, propranolol, Lasix and Singulair. CURRENT MEDICATIONS IN THE HOSPITAL Include Maxipime, sodium chloride at 75 mL an hour, insulin sliding scale, Tamiflu. Unit #: [id number] #: [id number] Patient: LUIS RESTREPO SOCIAL HISTORY He lives with his . He does not smoke or drink. CODE STATUS He is a [id number]. PAST SURGICAL HISTORY 1. Stent placement x2, cardiac. 2. Left nephrostomy tube. 3. Left hip repair. 4. I think he has also had some peripheral vascular disease surgeries, but I am not clear as to what at this time. REVIEW OF SYSTEMS Currently the patient complains of blood-tinged sputum, extensive cough, fever, chills and decreased appetite. He is not complaining of chest pain, vision changes, nausea, vomiting or diarrhea. No palpitations. No dysuria or flank pain. Other 13 systems reviewed and, unless noted, are negative. PHYSICAL EXAMINATION VITAL SIGNS: His blood pressure is 130/64, temperature 98.1, heart rate 72. GENERAL: He is an alert, oriented and conversant white male who is in no acute distress. HEENT: Extraocular muscles are intact. No eye drainage or icterus. Oropharynx is dry and clear. NECK: Negative for JVD or bruit. CARDIAC: S1, S2. No gallop or rub. RESPIRATORY: Chest shows bilateral rhonchi. ABDOMEN: Soft, nontender, nondistended. Positive bowel sounds. No costovertebral angle tenderness. No suprapubic tenderness. He has a left nephrostomy tube with dark lacho urine. The tube is sort of dark in color. He also has an indwelling Roberts with lacho urine in the Roberts bag. No pulsatile mass. EXTREMITIES: Extremities show no cyanosis, clubbing or edema. DIAGNOSTIC STUDIES LAB DATA: Glucose 138, BUN 34, creatinine 2.2, sodium 137, potassium 4.2, bicarbonate 23, uric acid 6.3, calcium 8.6, phosphorous 2.6, albumin 2.8, magnesium 2, AST 15, ALT 10. CK total 21, troponin 0.06. BNP is 647. Lactic acid 1.2. Hemoglobin of 8.8, white blood cell count of 22.4, platelet count of 121. Influenza screen is negative. Urinalysis - Leukocyte esterase 3+, protein 2+, blood 2+, white blood cells 25-50, bacteria 3+. ASSESSMENT AND PLAN 1. Acute kidney injury, likely on the basis of sepsis syndrome and volume depletion. No nephrotoxic medicines are identified. CAT scan is negative for hydronephrosis. Dr. Berry is following the patient and had last changed his left nephrostomy tube 2 weeks ago and his indwelling Roberts 3 weeks ago. He has known left renal atrophy. His baseline creatinine is unclear. He has no nephrology followup. His creatinine was 2.5 yesterday. It has improved with hydration to 2.2. Back in 2013 his baseline creatinine ranged between 1.7 and 2. He appears dry on exam. I agree with IV fluids. 2. Chronic kidney disease. As noted above, his baseline is unclear. Unit #: [id number] #: [id number] Patient: LUIS RESTREPO Would appear that he has this on the basis of obstructive uropathy. He has extensive vascular disease, so he could also have arteriosclerosis or nephrosclerosis as a cause. I asked him if he would ever enter a chronic hemodialysis program, and he said he would not want to do so. 3. Sepsis syndrome. This appears to be on the basis of severe pneumonia. He was hospitalized back in May for UTI. With his chronic bags, he certainly could have infected appearing urinalysis on a continual basis. I agree with [facility]. He has no urinary symptoms. Dr. Gurdeep Berry is following. 4. Anemia, likely of acute and chronic disease. Stool hemoccults will be ordered. 5. Infrarenal abdominal aortic aneurysm, 7.7 cm x 9.5 cm. The patient does know he has this aneurysm. He would be an incredibly high risk patient to perform any intervention on and has an extremely high likelihood of needing dialysis following any intervention. 6. DNR status. Thank you very much for allowing me to see Luis Restrepo in consultation. Will follow closely with you. Dictated by... Bee Thomas M.D. LINDA/claudio TD: 08/13/2016 10:40 JOB #: [id number] CONSULTATION REPORT X Bee Thomas MD X CONSULTATION REPORT
--- NOTE | ~2016-08-12 | EKG ---
PATIENT: STEVEN RESTREPO UNIT #: [id number] Ventricular Rate: 89 BPM Atrial Rate: 86 BPM QRS Duration: 110 ms Q-T Interval: 378 ms QTC Calculation(Bezet): 459 ms Calculated R [place]: -27 degrees Calculated T [place]: 64 degrees Diagnosis Line: Sinus rhythm with occasional Premature ventricular Diagnosis Line: complexes Diagnosis Line: Nonspecific ST abnormality Diagnosis Line: Abnormal ECG Leftward axis Nonspecific ST Diagnosis Line: abnormality Lateral leads Diagnosis Line: When compared with ECG of 30-MAY-2013 21:19, Diagnosis Line: Junctional rhythm has replaced Sinus rhythm Diagnosis Line: Confirmed by DHIRAJ VILLALBA MD ([id number]) on 08/13/2016 Diagnosis Line: 12:07:32 PM INTERPRETING MD: ORLY FOX
--- NOTE | ~2016-08-12 | CO ---
Unit #: [id number] #: [id number] Patient: STEVEN RESTREPO 801775 [address] [address] [id number] I MR#: [id number] NAME: STEVEN RESTREPO. ROOM: 308 Age: 85 Sex: M Admission Date: 08/12/2016 : 1930 Attending Physician: Phillip Bauer M.D. Primary Care Physician: Timo Caro Jr., M.D. CONSULTATION REPORT CHIEF COMPLAINT Fever, chills. HISTORY OF PRESENT ILLNESS Mr. Restrepo is an 85-year-old gentleman seen normally by my partner, Dr. Berry, who has a history of a left ureteral stricture, urethral stricture. He has an indwelling left nephrostomy tube as well as indwelling Roberts catheter. The patient gets his Roebrts catheter changed every four weeks and his nephrostomy tube changed every four weeks. He came in last night with fever, chills and he had admission. CT scan shows suspicious for pneumonia but also previously known but larger AAA. The patient has an atrophic left kidney. Nephrostomy tube looked like was in good position and it is draining and his Roberts catheter is in position as well. Patient is feeling a little bit better. Denies any flank or (1) pain. PAST MEDICAL HISTORY 1. Left ureteral stricture. 2. Urethral stricture. 3. Cardiovascular disease. 4. Atrial fibrillation. 5. AAA. 6. COPD. 7. Pulmonary fibrosis. 8. Renal insufficiency. 9. Hypertension. 10. Hyperlipidemia. PAST SURGICAL HISTORY 1. Several cystoscopy procedures. 2. Ureteroscopy. 3. Coronary stent. 4. Aortic aneurysm repair. 5. Left ORIF. 6. Esophageal dilation. MEDICATIONS Refer to reconciliation sheet. SOCIAL HISTORY Previous smoker. PHYSICAL EXAMINATION VITAL SIGNS: His temperature is 100, T-max was 103. Unit #: [id number] #: [id number] Patient: STEVEN RESTREPO ABDOMEN: Soft without rebound or guarding. GENITOURINARY: Roberts catheter urine is clear, slightly lacho color. Nephrostomy tube urine is clear but it has a blue tint to it, likely secondary to a component in the catheter or the nephrostomy tube bag. DIAGNOSTIC STUDIES LABORATORY: Creatinine 2.2, GFR 30, BUN 34. White count 22.4. Urine culture is pending. ASSESSMENT 1. Ureteral stricture on the left, indwelling nephrostomy tube which is chronic (changed monthly). 2. Urethral stricture: Roberts catheter in place. Roberts catheter draining. PLAN I will obtain a urine culture from his nephrostomy tube site. Continue antibiotics. Continue catheter drainage. His catheter has been changed just recently. Therefore, will not change his catheter at this time or will not change his nephrostomy tube at this time. Thank you for the chance to participate in his care. Will follow along with you. Dictated by... Raul Ramos M.D. SHAWNA/doc TD: 08/13/2016 09:58 JOB #: [id number] CONSULTATION REPORT X Raul Ramos MD X CONSULTATION REPORT
[2016-08-12 16:51] LABS: ARTERIAL BLD GAS O2 SATURATION 94.5 % (90.0-100.0); ARTERIAL BLOOD GAS ALLEN TEST NORMAL; ARTERIAL BLOOD GAS ART SITE LEFT RADIAL; ARTERIAL BLOOD GAS CARBOXY HB 0.7 %sat (0.0-9.0); ARTERIAL BLOOD GAS HCO3 25.2 mmol/L; ARTERIAL BLOOD GAS MET HB 0.6 %sat (0.0-2.0); ARTERIAL BLOOD GAS PCO2 38.8 mmHg (35.0-45.0); ARTERIAL BLOOD GAS PO2 77.9 mmHg (80.0-100); ARTERIAL DRAW? YES
[2016-08-12 17:17] LABS: BASOPHIL# 0.1 X10e3 (0-0.3); BASOPHIL% 0.5 % (0-2.5); EOSINOPHIL# 0.2 X10e3 (0-0.7); EOSINOPHIL% 0.7 % (0.0-7.0); HEMATOCRIT 36.1 % (38.0-50.0); LYMPHOCYTE# 0.8 X10e3 (1.0-3.5); LYMPHOCYTE% 3.1 % (17.0-45.0); MEAN CELL VOLUME 80.2 FL (83-96); MEAN CORPUSCULAR HEMOGLOBIN 24.3 PG (28-34); MEAN CORPUSCULAR HGB CONC 30.4 g/dL (30-36); MEAN PLATELET VOLUME 9.7 FL (6.5-11.5); MONOCYTE# 3.3 X10e3 (0-1.0); NEUTROPHIL% 83.7 % (40-75); PLATELET COUNT 191 X10e3 (140-420); RED BLOOD COUNT 4.51 X10e (3.90-5.60); WHITE BLOOD COUNT 27.5 X10e3 (4.0-10.5)
[2016-08-12 17:18] LABS: DIFF IND YES
[2016-08-12 17:21] LABS: INFLUENZA A NEG (NEG); INFLUENZA B NEG (NEG)
[2016-08-12 17:27] LABS: PROTHROMBIN TIME (PATIENT) 10.6 SECONDS (9.6-11.5)
[2016-08-12 17:31] LABS: POC - TROPONIN <0.05 ng/mL (<=0.05)
[2016-08-12 17:46] LABS: ANISOCYTOSIS SL; HYPOCHROMIA SL; PLATELET ESTIMATE NORMAL (NORMAL)
[2016-08-12 18:00] LABS: ALBUMIN SERUM 3.6 g/dL (3.5-5.0); BILIRUBIN, DIRECT 0.1 mg/dL (0.0-0.2); BILIRUBIN,INDIRECT 0.7 mg/dL (0.0-0.9); BILIRUBIN,TOTAL 0.8 mg/dL (0.2-2.0); BUN/CREATININE RATIO 14.8; CALCIUM SERUM 9.3 mg/dL (8.4-10.2); CREATININE SERUM 2.5 mg/dL (0.6-1.4); GLOM FILT RATE Estimated 26.2 mL/min (>60); POTASSIUM 4.6 mmol/L (3.5-5.1); PROTEIN TOTAL SERUM 7.9 g/dL (6.0-8.3)
[~2016-08-12 18:14] MED LIST: ACETAMINOPHEN PO; ACETAMINOPHEN PR; ACETAMINOPHEN650 M1 PO; AMLODIPINE BESY10 MG PO; ASPIRIN EC81 M1 PO; ASPIRIN81 M1 PO; ASPIRIN81 MG PO; AUGMENTIN PO; BUDESONIDE0.25 MG/2 NEB; CARDIZEM CD180 M2 PO; CIPRO250 MG PO; COLACE PO; COUMADIN5 MG PO; HALFPRIN162 MG PO; HYDROCODONE-APA1 T41 PO; IMDUR30 MG PO; INDERAL40 MG DOB; INDERAL40 MG PO; LASIX20 MG PO; LEVAQUIN PO; LEVAQUIN250 MG PO; MILK OF MAGNESIA PO; MIRALAX17 G1 PO; MIRALAX17 GM PO; MONTELUKAST SOD10 MG PO; MORGIDOX100 MG PO; MUCINEX DM ER1 EACH PO; NITRODISC0.4 MG EXT; NORVASC PO; NYSTATIN5 ML PO; OMEPRAZOLE40 M1 PO; OMEPRAZOLE40 MG PO; OXYGEN; PREDNISONE PO; PRILOSEC PO; PRILOSEC40 MG PO; PROPRANOLOL HCL40 MG PO; PROPRANOLOL HCL60 M1 PO; PROPRANOLOL PO; PROTONIX PO; PULMICORT0.25 MG/2 IH; PULMICORT180 MCG/A1 IH; SIMVASTATIN20 MG PO; SPIRIVA18 MCG INH; SYMBICORT INH; TEMAZEPAM PO; TEMAZEPAM30 MG PO; XOPENEX1.25 MG/3 NEB; ZOCOR PO; ZOCOR20 MG PO; [UNRECOGNIZED DRUG - OTHER] TD
[2016-08-12 19:04] LABS: POC - CKMB <1.0 ng/mL (0.0-7.9); POC - TROPONIN <0.05 ng/mL (<=0.05)
[2016-08-12 20:49] LABS: URINE SOURCE CLEAN CATCH
[2016-08-12 20:56] LABS: URINE APPEARANCE TURBID; URINE BILIRUBIN NEG (NEG); URINE BLOOD 2+ (NEG); URINE COLOR YELLOW; URINE GLUCOSE 100 MG/DL (NEG); URINE KETONE TRACE (NEG); URINE LEUKOCYTE ESTERASE 3+ (NEG); URINE NITRATE NEG (NEG); URINE PH 5.5 (5-8); URINE PROTEIN 2+ (NEG); URINE SPECIFIC GRAVITY 1.016 (1.003-1.035); URINE UROBILINOGEN 0.2 MG/DL (NEG)
[2016-08-12 20:59] LABS: CULTURE INDICATED? YES; URINE BACTERIA AUWI 4+ (NEGATIVE); URINE SQUAMOUS EPITHELIAL CELL NONE SEEN /[HPF]; UWBCS1 AUWI 200-300 (0-5)
[2016-08-13 01:36] LABS: CK TOTAL 14 IU/L (36-174)
[2016-08-13 06:10] LABS: ARTERIAL BLD GAS O2 SATURATION 98.6 % (90.0-100.0); ARTERIAL BLOOD GAS CARBOXY HB 0.5 %sat (0.0-9.0); ARTERIAL BLOOD GAS HCO3 22.4 mmol/L; ARTERIAL BLOOD GAS PCO2 32.2 mmHg (35.0-45.0); ARTERIAL BLOOD GAS pH 7.452 (7.350-7.450)
[2016-08-13 06:12] LABS: ARTERIAL BLOOD GAS ALLEN TEST NORMAL; ARTERIAL BLOOD GAS ART SITE LEFT RADIAL; ARTERIAL BLOOD GAS DELIVERY OPTIFLOW; ARTERIAL DRAW? YES
[2016-08-13 07:29] LABS: BASOPHIL% 0.2 % (0-2.5); LYMPHOCYTE% 4.4 % (17.0-45.0); MEAN CELL VOLUME 79.5 FL (83-96); MEAN CORPUSCULAR HEMOGLOBIN 24.1 PG (28-34); MEAN CORPUSCULAR HGB CONC 30.4 g/dL (30-36); MEAN PLATELET VOLUME 9.4 FL (6.5-11.5); MONOCYTE# 2.8 X10e3 (0-1.0); MONOCYTE% 12.6 % (3.0-12.0); NEUTROPHIL# 18.6 X10e3 (1.5-7.1); NEUTROPHIL% 82.8 % (40-75); PLATELET COUNT 121 X10e3 (140-420); RED BLOOD COUNT 3.65 X10e (3.90-5.60); RED CELL DISTRIBUTION WIDTH 16.7 % (11.0-15.5); WHITE BLOOD COUNT 22.4 X10e3 (4.0-10.5)
[2016-08-13 07:30] LABS: HEMOGLOBIN 8.8 gm/dL (13.0-16.0)
[2016-08-13 07:32] LABS: DIFF IND NO
[2016-08-13 07:55] LABS: ALBUMIN SERUM 2.8 g/dL (3.5-5.0); BILIRUBIN,TOTAL 0.6 mg/dL (0.2-2.0); BUN/CREATININE RATIO 15.45; CALCIUM SERUM 8.6 mg/dL (8.4-10.2); CREATININE SERUM 2.2 mg/dL (0.6-1.4); GLOM FILT RATE Estimated 30.3 mL/min (>60); PHOSPHOROUS 2.6 mg/dL (2.5-4.6); POTASSIUM 4.2 mmol/L (3.5-5.1); PROTEIN TOTAL SERUM 6.2 g/dL (6.0-8.3)
[2016-08-13 08:54] LABS: CK TOTAL 21 IU/L (36-174)
[2016-08-13 12:32] LABS: IRON SERUM 11 ug/dL (45-182); TOTAL IRON BINDING CAPACITY 204 ug/dL (252-460); TRANSFERRIN 146 mg/dL (180-329); TRANSFERRIN SATURATION 5 % (20-50)
[2016-08-13 14:49] LABS: CREATININE,RANDOM URINE 41 mg/dL; TOTAL PROTEIN,RANDOM URINE 433 mg/dl (<10)
[2016-08-13 20:18] LABS: INR 1.1; PROTHROMBIN TIME (PATIENT) 11.3 SECONDS (9.6-11.5)
[2016-08-13 20:25] LABS: HEMATOCRIT 29.6 % (38.0-50.0); MEAN CELL VOLUME 79.6 FL (83-96); MEAN CORPUSCULAR HEMOGLOBIN 24.2 PG (28-34); MEAN CORPUSCULAR HGB CONC 30.4 g/dL (30-36); MEAN PLATELET VOLUME 9.4 FL (6.5-11.5); RED BLOOD COUNT 3.72 X10e (3.90-5.60); WHITE BLOOD COUNT 17.3 X10e3 (4.0-10.5)
[2016-08-14 02:04] LABS: HEMATOCRIT 29.6 % (38.0-50.0); MEAN CELL VOLUME 79.1 FL (83-96); MEAN CORPUSCULAR HEMOGLOBIN 23.9 PG (28-34); MEAN CORPUSCULAR HGB CONC 30.3 g/dL (30-36); MEAN PLATELET VOLUME 9.5 FL (6.5-11.5); RED BLOOD COUNT 3.75 X10e (3.90-5.60); RED CELL DISTRIBUTION WIDTH 16.8 % (11.0-15.5); WHITE BLOOD COUNT 15.8 X10e3 (4.0-10.5)
[2016-08-14 02:28] LABS: BUN/CREATININE RATIO 12.96; CALCIUM SERUM 8.6 mg/dL (8.4-10.2); CREATININE SERUM 2.7 mg/dL (0.6-1.4); GLOM FILT RATE Estimated 23.9 mL/min (>60); POTASSIUM 3.6 mmol/L (3.5-5.1)
[2016-08-14 10:37] LABS: ALBUMIN SERUM 3.1 g/dL (3.5-5.0); BILIRUBIN,TOTAL 0.8 mg/dL (0.2-2.0); CALCIUM SERUM 9.1 mg/dL (8.4-10.2); CREATININE SERUM 2.4 mg/dL (0.6-1.4); GLOM FILT RATE Estimated 27.4 mL/min (>60); POTASSIUM 3.7 mmol/L (3.5-5.1)
[2016-08-15 05:55] LABS: MEAN CELL VOLUME 78.6 FL (83-96); MEAN CORPUSCULAR HEMOGLOBIN 24.2 PG (28-34); MEAN CORPUSCULAR HGB CONC 30.8 g/dL (30-36); MEAN PLATELET VOLUME 9.5 FL (6.5-11.5); RED BLOOD COUNT 3.7 X10e (3.90-5.60); RED CELL DISTRIBUTION WIDTH 17.1 % (11.0-15.5); WHITE BLOOD COUNT 8.6 X10e3 (4.0-10.5)
[2016-08-15 06:38] LABS: BUN/CREATININE RATIO 15.45; CALCIUM SERUM 8.4 mg/dL (8.4-10.2); CREATININE SERUM 3.3 mg/dL (0.6-1.4); MAGNESIUM 2.1 mg/dL (1.6-3.0)
[2016-08-16 05:59] LABS: BASOPHIL# 0.1 X10e3 (0-0.3); BASOPHIL% 0.4 % (0-2.5); HEMATOCRIT 29.5 % (38.0-50.0); LYMPHOCYTE# 0.4 X10e3 (1.0-3.5); LYMPHOCYTE% 2.5 % (17.0-45.0); MEAN CELL VOLUME 79.3 FL (83-96); MEAN CORPUSCULAR HEMOGLOBIN 24.2 PG (28-34); MEAN CORPUSCULAR HGB CONC 30.5 g/dL (30-36); MEAN PLATELET VOLUME 9.8 FL (6.5-11.5); MONOCYTE# 0.8 X10e3 (0-1.0); MONOCYTE% 5.7 % (3.0-12.0); NEUTROPHIL# 13.1 X10e3 (1.5-7.1); NEUTROPHIL% 91.4 % (40-75); PLATELET COUNT 135 X10e3 (140-420); RED BLOOD COUNT 3.72 X10e (3.90-5.60); RED CELL DISTRIBUTION WIDTH 17.5 % (11.0-15.5)
[2016-08-16 06:21] LABS: DIFF IND NO; WHITE BLOOD COUNT 14.3 X10e3 (4.0-10.5)
[2016-08-16 07:44] LABS: BILIRUBIN,TOTAL 0.6 mg/dL (0.2-2.0); BUN/CREATININE RATIO 17.64; CALCIUM SERUM 8.3 mg/dL (8.4-10.2); CREATININE SERUM 3.4 mg/dL (0.6-1.4); GLOM FILT RATE Estimated 18.3 mL/min (>60); POTASSIUM 4.3 mmol/L (3.5-5.1); PROTEIN TOTAL SERUM 7.1 g/dL (6.0-8.3)
[2016-08-17 08:21] LABS: HEMOGLOBIN 8.7 gm/dL (13.0-16.0); MEAN CELL VOLUME 79.5 FL (83-96); MEAN CORPUSCULAR HEMOGLOBIN 24.5 PG (28-34); MEAN CORPUSCULAR HGB CONC 30.9 g/dL (30-36); MEAN PLATELET VOLUME 10.3 FL (6.5-11.5); RED BLOOD COUNT 3.53 X10e (3.90-5.60); RED CELL DISTRIBUTION WIDTH 16.5 % (11.0-15.5); WHITE BLOOD COUNT 10.1 X10e3 (4.0-10.5)
[2016-08-20 16:37] LABS: ASPERGILLUS FLAVUS Negative (Negative); ASPERGILLUS FUMIGATUS Negative (Negative); ASPERGILLUS NIGER Negative (Negative); BLASTOMYCES ANTIBODY Negative (Negative); COCCIDIODES ANTIBODY Negative (Negative); CRYPTOCOCCAL AB <1:2 (()); CRYPTOCOCCAL AG SCREEN SOURCE Serum (()); CRYPTOCOCCAL SCREEN Not Detected (Not Detected); HISTOPLASMA AB Negative (Negative)
== END 2016-08-17 17:05 | DRG 871 ==
LOC: CED 18:14 → CEDOF 18:40 → C3A PCU 08-13 01:21
PROVIDERS: Emergency Medicine; Family Medicine; Internal Medicine Nephrology; Internal Medicine Pulmonary Disease; Surgery Vascular Surgery
PROC: B246YZZ Ultrasonography of Right and Left Heart using Other Contrast (ICD-10-PCS; principal; 2016-08-12)
DX: A41.02 Sepsis due to Methicillin resistant Staphylococcus aureus (principal); J96.21 Acute and chronic respiratory failure with hypoxia; I50.31 Acute diastolic (congestive) heart failure; J15.212 Pneumonia due to Methicillin resistant Staphylococcus aureus; N18.4 Chronic kidney disease, stage 4 (severe); J44.1 Chronic obstructive pulmonary disease with (acute) exacerbation; N17.9 Acute kidney failure, unspecified; I13.0 Hypertensive heart and chronic kidney disease with heart failure and stage 1 through stage 4 chronic kidney disease, or unspecified chronic kidney disease; I48.0 Paroxysmal atrial fibrillation; J84.10 Pulmonary fibrosis, unspecified; N39.0 Urinary tract infection, site not specified; I25.2 Old myocardial infarction; I25.10 Atherosclerotic heart disease of native coronary artery without angina pectoris; Z95.5 Presence of coronary angioplasty implant and graft; Z99.81 Dependence on supplemental oxygen; E78.5 Hyperlipidemia, unspecified; I71.4 Abdominal aortic aneurysm, without rupture; Z87.891 Personal history of nicotine dependence; Z96.642 Presence of left artificial hip joint; D64.9 Anemia, unspecified; K59.00 Constipation, unspecified; N26.1 Atrophy of kidney (terminal); B95.2 Enterococcus as the cause of diseases classified elsewhere; Z66 Do not resuscitate; Z79.82 Long term (current) use of aspirin; R73.9 Hyperglycemia, unspecified; R80.9 Proteinuria, unspecified; Z93.6 Other artificial openings of urinary tract status; Z82.49 Family history of ischemic heart disease and other diseases of the circulatory system; N35.9 Urethral stricture, unspecified
CPT/HCPCS: 36600; 71010; 74176; 80048; 80053; 80061; 80076; 80202; 81003; 82550; 82553; 82570; 82728; 82803; 82947; 83036; 83540; 83550; 83605; 83735; 83880; 84100; 84156; 84443; 84484; 85025; 85027; 85610; 85730; 86334; 86335; 86606; 86612; 86631; 86698; 87040; 87070; 87077; 87086; 87186; 87205; 87633; 87804; 93005; 93306; 94640; 94660; 94664; 94760; 96365; 96368; 99291; G0238; J0456; J0692; J0696; J1160; J1265; J1644; J1815; J2920; J3370